=== PATIENT | male | born 1995 | race African-American/Black ===

== ENCOUNTER 2021-08-04 14:39 | Emergency (ER) | payer MEDICAID ==
[~2021-08-04] VITALS: Ht 180.3 cm; Wt 113.4 kg
[2021-08-04 14:40] VITALS: BP_SYST 134
--- NOTE | 2021-08-04 14:40 | NUR ---
Patient to ER bed 5 to gown for evaluation. Side rails up. Report given to .
--- NOTE | 2021-08-04 14:55 | NUR ---
DR TAVAREZ IN TO ASSESS
--- NOTE | 2021-08-04 15:00 | NUR ---
BIB SELF FROM HOME FOR C/O CP. UNPROVOKED
[2021-08-04 15:26] LABS: BASOPHILS % (AUTO) 0.7 % (0.0-2.0); EOSINOPHILS # (AUTO) 0.1 K/uL (0.0-0.4); EOSINOPHILS % (AUTO) 1.1 % (0.0-4.0); HEMATOCRIT 48.1 % (36-54); HEMOGLOBIN 15.6 g/dL (14.0-18.0); LYMPHOCYTES # (AUTO) 1.7 K/uL (1.0-5.5); MEAN CORPUSCULAR HEMOGLOBIN 26 pg (27-31); MEAN CORPUSCULAR HGB CONC 32 % (32-36); MEAN CORPUSCULAR VOLUME 79 fL (79.0-98.0); MONOCYTES # (AUTO) 0.5 K/uL (0.0-1.0); MONOCYTES % (AUTO) 9.5 % (1.7-9.3); NEUTROPHILS # (AUTO) 2.8 K/uL (1.8-7.7); NEUTROPHILS % (AUTO) 54.7 % (40.0-70.0); PLATELET COUNT (AUTO) 252 K/uL (130-430); RED BLOOD CELL COUNT(AUTO) 6.12 MIL/uL (4.2-6.2); RED CELL DISTRIBUTION WIDTH 13.7 % (9.0-15.0); WHITE BLOOD COUNT (AUTO) 5.1 K/uL (4.8-10.8)
[2021-08-04 15:46] LABS: ANION GAP 8 (5-15); CALCIUM 9.5 mg/dL (8.4-11.0); CHLORIDE 104 mmol/L (98-107); CREATININE 1.02 mg/dL (0.55-1.30); GLUCOSE 96 mg/dL (70-99); POTASSIUM 3.8 mmol/L (3.5-5.1); SODIUM SERUM 140 mmol/L (136-145); UREA NITROGEN, BLOOD 8 mg/dL (8-21)
[2021-08-04 15:55] LABS: GFR AFRICAN AMERICAN 114 mL/min (>90)
--- NOTE | 2021-08-04 16:00 | NUR ---
CALM, ALERT, SR ON MONITOR
--- NOTE | 2021-08-04 16:37 | NUR ---
DR TAVAREZ AT BEDSIDE
--- NOTE | 2021-08-04 16:47 | NUR ---
Patient given written and verbal discharge instructions and verbalizes understanding. ER MD discussed with patient the results and treatment provided. Patient in stable condition. ID arm band removed. Patient educated on pain management and to follow up with PMD. Pain Scale [ Opportunity for questions provided and answered.
== END 2021-08-04 16:47 | disposition home or self-care (01) ==
LOC: SED 14:39
DX: S86.912A Strain of unspecified muscle(s) and tendon(s) at lower leg level, left leg, initial encounter (principal); R07.89 Other chest pain; X58.XXXA Exposure to other specified factors, initial encounter; Y93.89 Activity, other specified; Y92.89 Other specified places as the place of occurrence of the external cause; Y99.8 Other external cause status
CPT/HCPCS: 36415; 71045; 80048; 84484; 85025; 85379; 93005; 99285